=== PATIENT | female | born 1980 | race Caucasian/White ===

== ENCOUNTER 2016-08-29 22:22 | Emergency (ER) | payer SELFPAY ==
[2016-08-29 22:22] VITALS: O2SAT 100
[2016-08-29 23:01] VITALS: RESP 12; TEMP 97
[2016-08-29] MEDS ORDERED: KETOROLAC TROMETHAMINE 30 MG/ML SOL IV ONE (23:13)
[2016-08-29] MEDS ORDERED: ONDANSETRON HCL 4 MG/2 ML SOL IV ONE (23:13)
[2016-08-29] MEDS ORDERED: SODIUM CHLORIDE 0.9% 1000 ML SOL IV SCH (23:15)
[2016-08-29] MEDS ORDERED: KETOROLAC TROMETHAMINE 30 MG/ML SOL ONE (23:37)
[2016-08-29] MEDS ORDERED: ONDANSETRON HCL 4 MG/2 ML SOL ONE (23:37)
[2016-08-30] MEDS ORDERED: HYDROMORPHONE HCL 2 MG/ML SOL IV ONE (00:47)
[2016-08-30] MEDS ORDERED: HYDROMORPHONE HCL 2 MG/ML SOL ONE (00:54)
[2016-08-30 02:19] VITALS: BP 91/55; PULSE 63
== END 2016-08-30 02:15 | disposition home or self-care (01) | DRG 103 ==
LOC: ED 22:22
DX: G43.019 Migraine without aura, intractable, without status migrainosus (principal)
CPT/HCPCS: 96365; 96374; 96375; 99284; 99285; J1170; J1885; J2405

== ENCOUNTER 2017-06-04 21:44 | Emergency (ER) | payer OTHER ==
[2017-06-04 21:44] VITALS: O2SAT 100
[2017-06-04 22:28] VITALS: BP 90/61; PULSE 79; RESP 20; TEMP 97.2
== END 2017-06-04 22:38 | disposition home or self-care (01) ==
LOC: ED 21:44
DX: M53.3 Sacrococcygeal disorders, not elsewhere classified (principal)
CPT/HCPCS: 99282

== ENCOUNTER 2018-03-11 18:30 | Emergency (ER) | payer OTHER ==
[2018-03-11 18:30] VITALS: O2SAT 100
[2018-03-11 18:42] VITALS: BP 127/75; PULSE 73; RESP 16; TEMP 98.5
[2018-03-11 19:06] LABS: APPEARANCE,URINE Cloudy; BILIRUBIN,URINE NEGATIVE (NEGATIVE); COLOR,URINE Yellow; GLUCOSE, URINE (UA) NEGATIVE (NEGATIVE); KETONES,URINE TRACE (NEGATIVE); LEUKOCYTE ESTERASE ,URINE 2+ (NEGATIVE); NITRATE,URINE POSITIVE (NEGATIVE); OCCULT BLOOD,URINE TRACE INTACT (NEG-TRACE); UROBILINOGEN,URINE 0.2 (0.2-1.0 EU)
[2018-03-11 19:09] LABS: BACTERIA 4+ (< 1+); CRYSTALS NEGATIVE (0-3 AVE/HPF); RBC,URINE 0-2 (0-3AV/HPF); WBC,URINE 30-40 (0-5AV/HPF)
== END 2018-03-11 19:23 | disposition home or self-care (01) ==
LOC: ED 18:30
DX: N39.0 Urinary tract infection, site not specified (principal); B96.20 Unspecified Escherichia coli [E. coli] as the cause of diseases classified elsewhere
CPT/HCPCS: 81001; 87077; 87088; 87186; 99282; 99283

== ENCOUNTER 2018-03-13 18:03 | Emergency (ER) | payer OTHER ==
[2018-03-13 18:04] VITALS: O2SAT 100
[2018-03-13 18:35] VITALS: RESP 20; TEMP 97.8
[2018-03-13] MEDS ORDERED: SODIUM CHLORIDE 0.9% 1000ML 1,000 ML IV ONE (18:38)
[2018-03-13] MEDS ORDERED: ONDANSETRON HCL 4 MG/2 ML SOL IV ONE (18:38)
[2018-03-13 18:44] LABS: BASOPHILS % (AUTO) 1 % (0-3); EOSINOPHILS % (AUTO) 10 % (0-9); HEMATOCRIT 38 % (35-47); HEMOGLOBIN 12.5 gm/dl (12.0-15.5); LYMPHOCYTES % (AUTO) 41.1 % (10-50); MEAN CORPUSCULAR HEMOGLOBIN 29.2 pg (27.0-32.0); MEAN CORPUSCULAR HGB CONC 33.2 gm/dl (32.0-36.0); MEAN CORPUSCULAR VOLUME 88 fL (81-99); MONOCYTES % (AUTO) 6.5 % (0-12); NEUTROPHILS % (AUTO) 41.4 % (37-80)
[2018-03-13] MEDS ORDERED: ONDANSETRON HCL 4 MG/2 ML SOL ONE (18:45)
[2018-03-13 18:52] LABS: CALCIUM 8.5 mg/dl (8.5-10.1); CARBON DIOXIDE 26.9 mEq/L (21-32); CREATININE 0.79 mg/dl (0.60-1.00); POTASSIUM 3.7 mMol/L (3.5-5.1)
[2018-03-13 20:27] VITALS: BP 99/65; PULSE 53
== END 2018-03-13 20:17 | disposition home or self-care (01) ==
LOC: ED 18:03
DX: E86.0 Dehydration (principal)
CPT/HCPCS: 36415; 80048; 85025; 96365; 96374; 99283; 99284; J2405

== ENCOUNTER 2018-03-29 07:23 | Emergency (ER) | payer OTHER ==
[2018-03-29 07:36] VITALS: RESP 16; TEMP 97.6
[2018-03-29] MEDS ORDERED: ONDANSETRON HCL 4 MG/2 ML SOL IV ONE (07:51)
[2018-03-29] MEDS ORDERED: ONDANSETRON HCL 4 MG/2 ML SOL ONE (07:53)
[2018-03-29] MEDS ORDERED: SODIUM CHLORIDE 0.9% 1000ML 1,000 ML IV SCH (08:00)
[2018-03-29] MEDS ORDERED: SODIUM CHLORIDE 0.9% 1000ML 1,000 ML IV NR (08:00)
[2018-03-29 08:09] LABS: BASOPHILS % (AUTO) 1 % (0-3); EOSINOPHILS % (AUTO) 4 % (0-9); HEMATOCRIT 41 % (35-47); HEMOGLOBIN 13.6 gm/dl (12.0-15.5); LYMPHOCYTES % (AUTO) 23.3 % (10-50); MEAN CORPUSCULAR HEMOGLOBIN 29.2 pg (27.0-32.0); MEAN CORPUSCULAR VOLUME 88 fL (81-99); MONOCYTES % (AUTO) 6.7 % (0-12); NEUTROPHILS % (AUTO) 64.8 % (37-80)
[2018-03-29 08:19] LABS: ALBUMIN 3.9 gm/dl (3.4-5.0); BILIRUBIN,TOTAL 0.6 mg/dl (0.2-1.0); CALCIUM 9.1 mg/dl (8.5-10.1); CARBON DIOXIDE 24.3 mEq/L (21-32); CREATININE 0.79 mg/dl (0.60-1.00); POTASSIUM 3.8 mMol/L (3.5-5.1)
[2018-03-29 08:20] LABS: APPEARANCE,URINE Clear; BILIRUBIN,URINE NEGATIVE (NEGATIVE); COLOR,URINE Yellow; GLUCOSE, URINE (UA) NEGATIVE (NEGATIVE); KETONES,URINE NEGATIVE (NEGATIVE); LEUKOCYTE ESTERASE ,URINE NEGATIVE (NEGATIVE); NITRATE,URINE NEGATIVE (NEGATIVE); OCCULT BLOOD,URINE NEGATIVE (NEG-TRACE); UROBILINOGEN,URINE 0.2 (0.2-1.0 EU)
[2018-03-29 08:26] LABS: RBC,URINE NEG (0-3AV/HPF)
[2018-03-29 08:27] LABS: BACTERIA NEGATIVE (< 1+); CRYSTALS NEGATIVE (0-3 AVE/HPF); EPITHELIAL CELLS 0-3 (SQUAMOUS)
[2018-03-29] MEDS ORDERED: KETOROLAC TROMETHAMINE 30 MG/ML SOL IV ONE (08:34)
[2018-03-29] MEDS ORDERED: KETOROLAC TROMETHAMINE 30 MG/ML SOL ONE (08:35)
[2018-03-29 08:48] VITALS: BP 110/64; PULSE 64; O2SAT 97
[2018-03-29 09:12] LABS: WBC,URINE 0-1 (0-5AV/HPF)
== END 2018-03-29 11:08 | disposition home or self-care (01) ==
LOC: ED 07:23
DX: R10.9 Unspecified abdominal pain (principal)
CPT/HCPCS: 80053; 81001; 85025; 96365; 96374; 96375; 99283; 99284; J1885; J2405

== ENCOUNTER 2018-08-03 17:51 | Emergency (ER) | payer OTHER ==
[2018-08-03] MEDS ORDERED: METOCLOPRAMIDE HCL 5 MG/ML 10 MG in SODIUM CHLORIDE 0.9% 50 ML 50 ML IV ONE (18:27)
[2018-08-03] MEDS ORDERED: KETOROLAC TROMETHAMINE 30 MG/ML SOL IV ONE (18:27)
[2018-08-03] MEDS ORDERED: KETOROLAC TROMETHAMINE 30 MG/ML SOL ONE (18:30)
[2018-08-03] MEDS ORDERED: METOCLOPRAMIDE HYDROCHLORIDE 5 MG/ML SOL ONE (18:30)
[2018-08-03 19:04] VITALS: TEMP 97.2
[2018-08-03] MEDS ORDERED: PROMETHAZINE HYDROCHLORIDE 25 MG/ML SOL IV ONE (19:39)
[2018-08-03] MEDS ORDERED: PROCHLORPERAZINE EDISYLATE 5 MG/ML SOL IV ONE (19:39)
[2018-08-03] MEDS ORDERED: PROCHLORPERAZINE EDISYLATE 5 MG/ML SOL ONE (20:13)
[2018-08-03] MEDS ORDERED: PROMETHAZINE HYDROCHLORIDE 25 MG/ML SOL ONE (20:14)
[2018-08-03 22:58] VITALS: BP 111/74; PULSE 70; RESP 16; O2SAT 98
== END 2018-08-03 20:45 | disposition home or self-care (01) | DRG 103 ==
LOC: ED 17:51
DX: G43.909 Migraine, unspecified, not intractable, without status migrainosus (principal)
CPT/HCPCS: 96365; 96366; 96374; 96375; 99283; 99284; J0780; J1885; J2550; J2765

== ENCOUNTER 2018-08-21 15:11 | Emergency (ER) | payer OTHER ==
[2018-08-21 15:11] VITALS: O2SAT 98
[2018-08-21 15:32] VITALS: BP 107/69; PULSE 76; RESP 18; TEMP 97.8
[2018-08-21 16:23] LABS: APPEARANCE,URINE Clear; BILIRUBIN,URINE NEGATIVE (NEGATIVE); COLOR,URINE Light yellow; GLUCOSE, URINE (UA) NEGATIVE (NEGATIVE); KETONES,URINE NEGATIVE (NEGATIVE); LEUKOCYTE ESTERASE ,URINE NEGATIVE (NEGATIVE); NITRATE,URINE NEGATIVE (NEGATIVE); OCCULT BLOOD,URINE 1+ (NEG-TRACE); UROBILINOGEN,URINE 0.2 (0.2-1.0 EU)
[2018-08-21 16:34] LABS: BACTERIA TRACE (< 1+); CRYSTALS NEGATIVE (0-3 AVE/HPF); EPITHELIAL CELLS 0-5 (SQUAMOUS); RBC,URINE 0-3 (0-3AV/HPF); WBC,URINE 0-4 (0-5AV/HPF)
== END 2018-08-21 17:09 | disposition home or self-care (01) | DRG 700 ==
LOC: ED 15:11
DX: T83.518A Infection and inflammatory reaction due to other urinary catheter, initial encounter (principal); N76.0 Acute vaginitis
CPT/HCPCS: 81001; 87210; 99282

== ENCOUNTER 2018-10-26 07:30 | Emergency (ER) | payer OTHER ==
[2018-10-26 07:50] VITALS: BP 122/85; PULSE 49; RESP 18; TEMP 97.2; O2SAT 100
[2018-10-26] MEDS ORDERED: HYDROCORTISONE SODIUM SUCCIN 100 MG PDS IV ONE (08:16)
[2018-10-26] MEDS ORDERED: SODIUM CHLORIDE 0.9% 1000ML 1,000 ML IV ONE (08:16)
[2018-10-26] MEDS ORDERED: KETOROLAC TROMETHAMINE 30 MG/ML SOL IV ONE (08:16)
[2018-10-26] MEDS ORDERED: LORAZEPAM 2 MG/ML SOL IV ONE (08:16)
[2018-10-26] MEDS ORDERED: PROCHLORPERAZINE EDISYLATE 5 MG/ML SOL IV ONE (08:16)
[2018-10-26] MEDS ORDERED: KETOROLAC TROMETHAMINE 30 MG/ML SOL ONE (08:22)
[2018-10-26] MEDS ORDERED: PROCHLORPERAZINE EDISYLATE 5 MG/ML SOL ONE (08:23)
[2018-10-26] MEDS ORDERED: HYDROCORTISONE SODIUM SUCCIN 100 MG PDS ONE (08:23)
[2018-10-26] MEDS ORDERED: LORAZEPAM 2 MG/ML SOL ONE (08:23)
[2018-10-26 09:07] LABS: CALCIUM 8.1 mg/dl (8.5-10.1); CREATININE 0.7 mg/dl (0.60-1.00); MAGNESIUM 1.7 mg/dl (1.8-2.4); POTASSIUM 3.7 mMol/L (3.5-5.1)
[2018-10-26 09:12] LABS: CARBON DIOXIDE 29.6 mEq/L (21-32)
[2018-10-26] MEDS ORDERED: MAGNESIUM SULFATE 1 GM/2 ML SOL IV ONE (09:13)
[2018-10-26] MEDS ORDERED: HALOPERIDOL LACTATE 5 MG/ML SOL IV ONE (09:15)
[2018-10-26] MEDS ORDERED: HALOPERIDOL LACTATE 5 MG/ML SOL ONE (09:21)
[2018-10-26] MEDS ORDERED: MAGNESIUM SULFATE 5 GM/10 ML SOL ONE (09:44)
== END 2018-10-26 10:25 | disposition home or self-care (01) | DRG 103 ==
LOC: ED 07:30
DX: G43.901 Migraine, unspecified, not intractable, with status migrainosus (principal); E86.0 Dehydration; E83.42 Hypomagnesemia
CPT/HCPCS: 36415; 80048; 83735; 96365; 96374; 96375; 99283; J0780; J1630; J1720; J1885; J2060; J3475